=== PATIENT | male | born 1965 | race Caucasian/White ===

== ENCOUNTER 2025-01-09 20:37 | Emergency (ER) | payer MEDICARE, SELFPAY ==
[2025-01-09 21:01] VITALS: BP 117/68; PULSE 63; TEMP 36.6; O2SAT 98; BMI 21.5
--- NOTE | 2025-01-09 22:11 | PC.NURSE ---
Pt denies problems with bowel and bladder
[2025-01-09] MEDS: MORPHINE SULFATE 4 MG/ML VIAL IV (22:52)
[2025-01-09] MEDS: 0.9 % SODIUM CHLORIDE 1,000 ML 1000 ML IV (22:53)
[2025-01-09] MEDS: ONDANSETRON PF 4 MG/2 ML VIAL IV (22:53)
[2025-01-09 23:03] LABS: Basophils Absolute Auto 0.1 10^3/uL (0.0-0.1); Basophils Percent Auto 1.4 % (0.2-2.0); Eosinophils Absolute Auto 0.1 10^3/uL (0.0-0.7); Eosinophils Percent Auto 1.5 % (0.9-7.0); Hematocrit 43.8 % (42.0-54.0); Hemoglobin 14.7 g/dL (14.0-18.0); Immature Granulocytes Abs Auto 0.08 10^3/uL (0.00-0.03); Immature Granulocytes Pct Auto 1.1 % (0.0-0.5); Lymphocytes Absolute Auto 1.2 10^3/uL (1.2-3.8); Lymphocytes Percent Auto 17.1 % (20.5-60.0); Mean Corpuscular HGB Conc 33.6 g/dL (29.9-35.2); Mean Corpuscular Hemoglobin 30.8 pg (25.9-34.0); Mean Corpuscular Volume 91.8 fL (80.0-94.0); Mean Platelet Volume 10.1 fL (9.5-13.5); Monocytes Absolute Auto 0.4 10^3/uL (0.3-0.8); Monocytes Percent Auto 5.3 % (1.7-12.0); Neutrophils Absolute Auto 5.3 10^3/uL (1.4-6.5); Neutrophils Percent Auto 73.6 % (43.0-75.0); Platelet Count 277 10^3/uL (150-450); Red Blood Count 4.77 10^6/uL (4.70-6.10); White Blood Count 7.2 10^3/uL (4.0-11.0)
--- NOTE | 2025-01-09 23:10 | ED_ITS ---
HPI HPI - Back Pain/Injury General Chief Complaint: Back Pain/Injury Stated Complaint: BACK PAIN Time Seen by Provider: 01/09/25 21:46 Source: patient Source comment: Patient and present Mode of arrival: walk-in Limitations: no limitations History of Present Illness HPI Narrative: This 59-year-old male with a history of neck surgery last year resulting in righ t sided weakness and chronic pain presents for evaluation of ongoing worsening pain in his arms and legs. The patient had several neck surgeries because he was having pain in the right shoulder area. He then had a nerve stimulator placed but when the nerve stimulator was placed he started having severe pain in his right arm with decreased ability to move his arm and the nerve stimulator was removed. He has ongoing pain. The patient states he called the hospital [facility] pol[facility] operator here and was told that we would call in a neurologist for him if he came to the emergency department. I explained to him that we do not have neurology on-call or a neurologist on staff at this time. He is not having any new or focal neurologic deficits. He denies any chest pain or shortness of breath. He states he has been going downhill for the past year with 30 pound weight loss and cannot keep anything down. He has been on Ativan and Percocet according to his OARRS report. He does have an appointment with a neurologist in January. He is on blood thinners due to a history of a stroke. Related Data Allergies Allergy/AdvReac Type Severity Reaction Status Date / Time amoxicillin Allergy Severe Rash Verified 01/09/25 21:25 levofloxacin (From Levaquin) Allergy Intermediate rash Verified 01/09/25 21:25 gabapentin AdvReac Severe Headache Verified 01/09/25 21:25 hydromorphone (From Dilaudid) AdvReac Severe nausea Verified 01/09/25 21:25 vomitting metoclopramide (From Reglan) AdvReac Intermediate nausea Verified 01/09/25 21:25 vomitting Opioid HPI Opioid Management Most Recent Opioid Data: Last Pain Scale 10 01/09/25, 22:52 Last SEP Pain Assessment 01/09/25, 22:52 Review of Systems ROS Status of ROS 10 or more systems reviewed and unremark able except as noted in history and below PFSH PFSH Social History Little interest or pleasure in doing things: nearly every day Feeling down, depressed, or hopeless: nearly every day Exam Narrative Exam Narrative: Vital signs and Nursing Notes reviewed: Patient is afebrile with a normal pulse, normal blood pressure, he is not hypoxic with pulse ox of 98% on room air General: Awake, alert, oriented, no acute distress, lying comfortably on the stretcher HEENT: Normocephalic atraumatic, mucous membranes are moist and pink, eyes are clear, normal conjunctiva, vision is grossly intact, posterior pharynx is normal in appearance. Neck: Supple, healed posterior cervical midline incision Chest: Lungs are clear to auscultation with good air entry, there is no wheezing rhonchi or rales appreciated no accessory muscle use, patient is speaking in complete sentences-no chest wall tenderness to palpation CVS: Regular rate and rhythm S1-S2, no murmurs rubs or gallops, pulses are brisk and equal bilaterally ABD: Soft, nondistended, nontender, no rebound guarding or rigidity, bowel sounds are normal, no pulsatile masses appreciated Extremities: Diffuse muscle wasting of the upper and lower extremities. Patient has minimal use of the right upper extremity, this is chronic in nature, he is able to flex and bend at the hips bilaterally and knees. No calf swelling or tenderness noted. Skin: Normal in appearance without rash,pallor, petechiae or purpura Neuro: No focal deficits Constitutional Vital Signs, click to edit/add: Last Vital Signs Temp 97.9 F 01/09/25 21:01 Pulse 63 01/09/25 21:01 Resp 16 01/09/25 21:01 BP 117/68 01/09/25 21:01 Pulse Ox 98 01/09/25 21:01 O2 Del Method Room Air 01/09/25 21:01 Course Vital Signs Vital signs: Vital Signs Temperature 97.9 F 01/09/25 21:01 Pulse Rate 63 01/09/25 21:01 Respiratory Rate 16 01/09/25 21:01 Blood Pressure 117/68 01/09/25 21:01 Pulse Oximetry 98 01/09/25 21:01 Oxygen Delivery Method Room Air 01/09/25 21:01 Temperature 97.9 F 01/09/25 21:01 Pulse Rate 63 01/09/25 21:01 Respiratory Rate 16 01/09/25 21:01 Blood Pressure 117/68 01/09/25 21:01 Pulse Oximetry 98 01/09/25 21:01 Oxygen Delivery Method Room Air 01/09/25 21:01 MDM - Back Pain/Injury MDM Narrative Medical decision making narrative: This 59-year-old male with a history of chronic pain who has had 2 back surgeries in the past presents for evaluation of ongoing and worsening pain in his arms and legs. He had 2 neck surgeries last year and states his health has been declining since that time. He presents to this emergency department stating that he called the hospital [facility] [employer] [employer] operator was told that we would call in neurology for him. I did explain to him that we do not have neurology on staff here or available for consultation at this time. He has no new or acute neurologic complaints. He has a healed incision in his posterior neck from 2 neck surgeries in the past year. He has chronic muscle wasting and decreased use of his right upper extremity. I offered him fluids and some pain medication as well as some routine labs. He has normal white count and hemoglobin. Comprehensive metabolic profile is normal. He was medicated with morphine, Zofran and IV fluids. Review his OARRS report. October 28 he had prescription for 20 Percocet, 328 he also had a prescription for 20 Percocet. He also receives prescriptions for Ativan. He does have a follow-up appointment with neurology in January. There is no urgent need for admission at this time. He will be discharged home with a short course of pain medication again I explained to him that I do not have neurosurgery or neurology at this facility to evaluate him. He was encouraged to follow-up with the neurosurgeon and neurosurgery group that performed his surgery in the past. Lab Data Labs: Lab Results 01/09/25 Range/Units 22:56 WBC 7.2 (4.0-11.0) 10^3/uL RBC 4.77 (4.70-6.10) 10^6/uL Hgb 14.7 (14.0-18.0) g/dL Hct 43.8 (42.0-54.0) % MCV 91.8 (80.0-94.0) fL MCH 30.8 (25.9-34.0) pg MCHC 33.6 (29.9-35.2) g/dL RDW 14.0 (11.0-15.0) % Plt Count 277 (150-450) 10^3/uL MPV 10.1 (9.5-13.5) fL Neut % (Auto) 73.6 (43.0-75.0) % Lymph % (Auto) 17.1 L (20.5-60.0) % [place] % (Auto) 5.3 (1.7-12.0) % Eos % (Auto) 1.5 (0.9-7.0) % Baso % (Auto) 1.4 (0.2-2.0) % Neut # (Auto) 5.3 (1.4-6.5) 10^3/uL Lymph # (Auto) 1.2 (1.2-3.8) 10^3/uL [place] # (Auto) 0.4 (0.3-0.8) 10^3/uL Eos # (Auto) 0.1 (0.0-0.7) 10^3/uL Baso # (Auto) 0.1 (0.0-0.1) 10^3/uL Abs Immat Gran (auto) 0.08 H (0.00-0.03) 10^3/uL Imm/Tot Granulo (auto) 1.1 H (0.0-0.5) % Sodium 139 (136-145) mmol/L Potassium 4.3 (3.5-5.1) mmol/L Chloride 103 (98-107) mmol/L Carbon Dioxide 27.6 (21.0-32.0) mmol/L Anion Gap 12.7 BUN 9.0 (7.0-18.0) mg/dL Creatinine 0.51 L (0.70-1.30) mg/dL Est GFR ( Amer) >60 (>=60 mL/min/1.73m^2) Est GFR (Non-Af Amer) >60 (>=60 mL/min/1.73m^2) BUN/Creatinine Ratio 17.6 Glucose 106 (74-106) mg/dL Calcium 9.0 (8.5-10.1) mg/dL Total Bilirubin 0.8 (0.2-1.0) mg/dL AST 25 (15-37) U/L ALT 36 (16-63) U/L Alkaline Phosphatase 85 (46-116) U/L Total Protein 6.0 L (6.4-8.2) g/dL Albumin 3.4 (3.4-5.0) g/dL Globulin 2.6 g/dL Albumin/Globulin Ratio 1.3 Discharge Plan Discharge Chief Complaint: Back Pain/Injury Clinical Impression: Chronic neck pain Patient Disposition: Home, Self-Care Time of Disposition Decision: 23:26 Print Language: Spanish Instructions: Chronic Pain (ED), Chronic Neck Pain (DC) Referrals: SANDRITA ESPINO [Primary Care Provider, Unknown] - 1 week Discharge Date/Time: 01/09/25 23:45
[2025-01-09 23:19] LABS: Alanine Aminotransferase 36 U/L (16-63); Albumin Globulin Ratio 1.3; Albumin Level 3.4 g/dL (3.4-5.0); Alkaline Phosphatase 85 U/L (46-116); Anion Gap 12.7; Aspartate Amino Transferase 25 U/L (15-37); BUN Creatinine Ratio 17.6; Bilirubin Total 0.8 mg/dL (0.2-1.0); Carbon Dioxide 27.6 mmol/L (21.0-32.0); Chloride 103 mmol/L (98-107); Estimated GFR (African America >60 (>=60 mL/min/1.73m^2); Estimated GFR (Non-African Ame >60 (>=60 mL/min/1.73m^2); Globulin 2.6 g/dL; Glucose 106 mg/dL (74-106); Potassium 4.3 mmol/L (3.5-5.1); Sodium 139 mmol/L (136-145)
== END 2025-01-09 23:45 | disposition home or self-care (01) ==
PROVIDERS: Emergency Provider Emergency Medicine; PCP Nurse Practitioner
DX: M54.2 Cervicalgia (principal); G89.29 Other chronic pain; Z86.73 Personal history of transient ischemic attack (TIA), and cerebral infarction without residual deficits
CPT/HCPCS: 36415; 80053; 85025; 96374; 96375; 99284; J2270; J2405